=== PATIENT | female | born 1970 | race African-American/Black ===

== ENCOUNTER 2017-06-22 17:46 | Emergency (ER) | payer BC ==
[2017-06-22 18:03] VITALS: BP 137/85
[2017-06-22] MEDS ORDERED: Albuterol/Ipratropium NEB.SOL* Albuterol 2.5 MG/Ipratropium 0.5 MG 3 ML INH ONE (18:09)
[2017-06-22] MEDS ORDERED: predniSONE TAB* 20 MG PO ONE (18:14)
--- NOTE | 2017-06-22 18:15 | UC ---
Asthma HPI - HPI Summary HPI Summary: Chest congestion cough and wheeze for 3 days - History of Current Complaint Chief Complaint: UCRespiratory Stated Complaint: ASTHMA Time Seen by Provider: 06/22/17 18:09 Hx Obtained From: Patient Hx Last Menstrual Period: one month ?: No Onset/Duration: Sudden Onset, Lasting Days - 3, Still Present Timing: Constant Initial Severity: Mild Current Severity: Moderate Location/Character: Cough (Productive) Alleviating Factor(s): Nothing Associated Signs and Symptoms: Positive: Negative - Allergy/Home Medications Allergies/Adverse Reactions: Allergies Allergy/AdvReac Type Severity Reaction Status Date / Time Sulfa Antibiotics Allergy Intermediate Rash Verified 06/22/17 18:03 PMH/Surg Hx/FS Hx/Imm Hx Previously Healthy: No Respiratory History: Asthma GI/ History: Gastroesophageal Reflux - Surgical History Surgical History: None Surgery Procedure, Year, and Place: hx aspiration, pt states she has hx of complex cysts - Family History Known Family History: Positive: None - Social History Occupation: Employed Full-time Lives: With Family Alcohol Use: None Substance Use Type: None Smoking Status (MU): Never Smoked Tobacco Review of Systems Constitutional: Negative Skin: Negative Eyes: Negative ENT: Negative Respiratory: Shortness Of Breath, Cough Cardiovascular: Negative Gastrointestinal: Negative Genitourinary: Negative Motor: Negative Neurovascular: Negative Musculoskeletal: Negative Neurological: Negative Psychological: Negative Is Patient Immunocompromised?: No All Other Systems Reviewed And Are Negative: Yes Physical Exam Triage Information Reviewed: Yes Appearance: Well-Appearing, No Pain Distress, Well-Nourished Vital Signs: Initial Vital Signs Temp 97.7 F 06/22/17 17:59 Pulse 88 06/22/17 17:59 Resp 12 06/22/17 17:59 BP 137/85 06/22/17 17:59 Pulse Ox 100 06/22/17 17:59 Vital Signs Reviewed: Yes Eye Exam: Normal Eyes: Positive: Conjunctiva Clear ENT Exam: Normal ENT: Positive: Normal ENT inspection, Hearing grossly normal, Pharynx normal, Uvula midline. Negative: Nasal congestion, Nasal drainage, Tonsillar swelling, Trismus, Hoarse voice, Dental tenderness Dental Exam: Normal Neck exam: Normal Neck: Positive: Supple, Nontender, No Lymphadenopathy Respiratory Exam: Normal Respiratory: Positive: Chest non-tender, No respiratory distress, No accessory muscle use, Decreased breath sounds, Wheezing Cardiovascular Exam: Normal Cardiovascular: Positive: RRR, No Murmur, Pulses Normal, Brisk Capillary Refill Musculoskeletal Exam: Normal Musculoskeletal: Positive: Strength Intact, ROM Intact, No Edema Neurological Exam: Normal Neurological: Positive: Alert, Muscle Tone Normal Psychological Exam: Normal Skin Exam: Normal Re-Evaluation - Re-Evaluation First Eval Change: Improved - increased aeration, decrease wheeze feeling better after neb Asthma Course/Dx - Course Course Of Treatment: increase fluids, prednisone, neb, mdi, zithromax, follow with pcp prn - Differential Dx/Diagnosis Provider Diagnoses: Bronchitis with acute bronchospasm Discharge - Discharge Plan Condition: Stable Disposition: HOME Prescriptions: Albuterol 2.5MG/3ML (0.083%)* [Ventolin 2.5 MG/3 ML NEB.NORM*] 2.5 mg INH Q4H #1 box Azithromycin TAB* [Zithromax TAB (Z-JIM) 250 mg #6 tabs] 2 tab PO .TODAY, THEN 1 DAILY #1 jim predniSONE TAB* [Deltasone TAB*] 20 mg PO DAILY #9 tab Patient Education Materials: Asthma (ED), Bronchospasm (ED) Referrals: Swati Goodwin NP [Primary Care Provider] - 5 Days
== END 2017-06-22 19:00 | disposition home or self-care (01) ==
LOC: UCEAST 17:46
DX: J20.9 Acute bronchitis, unspecified (principal); J45.909 Unspecified asthma, uncomplicated; K21.9 Gastro-esophageal reflux disease without esophagitis; Z88.2 Allergy status to sulfonamides
CPT/HCPCS: 99212; A9270-GY; G0463; J7512

== ENCOUNTER 2020-12-12 01:41 | Inpatient (IN) ==
[2020-12-12] MEDS ORDERED: Heparin - STEMI 5,000 UNITS/ML 1 ml VIAL IV ONE ×2 (01:45→01:49)
[2020-12-12] MEDS ORDERED: nitroGLYCERIN DRIP 25,000 MCG in Premix IV 0 ML IV ONE (01:49)
[2020-12-12] MEDS ORDERED: nitroGLYCERIN DRIP 25,000 MCG/250 ML BTL ONE ×2 (01:54→02:02)
[2020-12-12] MEDS ORDERED: Ondansetron 4 mg VIAL 2 MG/ML 2 ml VIAL ONE ×2 (02:01→04:21)
[2020-12-12] MEDS ORDERED: Heparin 1,000 UNIT/ML 10 ml (10,000 UNITS) CATHLAB/DIALYSIS ONE (02:01)
[2020-12-12] MEDS ORDERED: VERAPAMIL 2.5 MG/ML 2 ML VIAL ** 5 mg/2 ml ONE (02:01)
[2020-12-12] MEDS ORDERED: Iohexol 350 (CONTRAST) 200 ML MDV IV ONE (02:02)
[2020-12-12] MEDS ORDERED: Lidocaine 1% VIAL 10 MG/ML VIAL ONE (02:02)
[2020-12-12] MEDS ORDERED: Heparin 2 UNITS/ML 1000 mls 3,000 ML IV ONE (02:02)
[2020-12-12 02:05] LABS: ABS Basophils 0.1 10^3/ul (0-0.2); ABS Eosinophils 0.2 10^3/ul (0-0.6); ABS Lymphocytes 2.3 10^3/ul (1.0-4.8); ABS Monocytes 0.6 10^3/ul (0-0.8); ABS Neutrophils 8.7 10^3/ul (1.5-7.7); Eosinophil % 1.5 %; Hematocrit 42 % (35-47); Hemoglobin 14.3 g/dL (12.0-16.0); Mean Corpuscular HGB Conc 34 g/dL (31-36); Mean Corpuscular Hemoglobin 30 pg (27-31); Mean Corpuscular Volume 86 fL (80-97); Mean Platelet Volume 8.2 fL (7.4-10.4); Platelet Count 268 10^3/uL (150-450); Red Blood Count 4.83 10^6 /uL (3.70-4.87); Red Cell Distribution Width 13 % (10-15); White Blood Count 11.8 10^3/uL (3.5-10.8)
[2020-12-12] MEDS ORDERED: Ondansetron 4 mg VIAL 2 MG/ML 2 ml VIAL IV ONE ×2 (02:09→06:00)
[2020-12-12 02:13] LABS: Activated Partial Thrombo Time 24.7 seconds (26.0-38.0)
[2020-12-12] MEDS ORDERED: Midazolam 5 mg/5 ml VIAL 1 mg/ml 5 ml VIAL (5 mg) ONE (02:21)
[2020-12-12] MEDS ORDERED: fentaNYL 100 mcg/2 ml 50 MCG/ML VIAL ONE (02:21)
[2020-12-12 02:23] LABS: Albumin 4.2 g/dL (3.2-5.2); Albumin/Globulin Ratio 1.5 (1-3); Calcium 9.4 mg/dL (8.6-10.3); EGFR African American 95.3 (>60); EGFR Non-African American 78.7 (>60); Globulin 2.8 g/dL (2-4); Potassium 3.8 mmol/L (3.5-5.0); Total Bilirubin 0.4 mg/dL (0.2-1.0)
[2020-12-12 02:26] LABS: Troponin I 0.01 ng/mL (<0.03)
[2020-12-12 02:28] LABS: CKMB ng/mL 1.4 ng/mL (0.6-6.3)
[2020-12-12] MEDS ORDERED: Bivalirudin 250 MG VIAL ONE (02:32)
[2020-12-12] MEDS ORDERED: Adenosine 3 MG/ML 2 ml VIAL (6 mg) ONE (03:04)
[2020-12-12 03:15] LABS: Magnesium 1.9 mg/dL (1.9-2.7)
[2020-12-12] MEDS ORDERED: NS 0.9% 1000 ml BAG 1,000 ML IV SCH (03:30)
[2020-12-12] MEDS ORDERED: Dextrose 50% Syringe 50 ml 25 GM/50 ML SYRINGE IV PUSH PRN (04:07)
[2020-12-12 05:04] LABS: Troponin I 3.34 ng/mL (<0.03)
[2020-12-12] MEDS ORDERED: Potassium Chloride LIQUID 20 MEQ/15 ML LIQUID PO ONE (09:15)
[2020-12-12] MEDS ORDERED: Perflutren Lipid Microsphere 3 ML VIAL ONE (10:22)
[2020-12-12 14:51] LABS: Troponin I 30.29 ng/mL (<0.03)
[2020-12-12] MEDS: Ondansetron 4 mg VIAL 2 MG/ML 2 ml VIAL IV PRN (22:32)
[2020-12-13 06:02] LABS: ABS Eosinophils 0.1 10^3/ul (0-0.6); ABS Lymphocytes 1.8 10^3/ul (1.0-4.8); ABS Monocytes 0.7 10^3/ul (0-0.8); ABS Neutrophils 4.9 10^3/ul (1.5-7.7); Eosinophil % 0.9 %; Hematocrit 38 % (35-47); Lymphocyte % 23.6 %; Mean Corpuscular HGB Conc 34 g/dL (31-36); Mean Corpuscular Hemoglobin 30 pg (27-31); Mean Corpuscular Volume 89 fL (80-97); Mean Platelet Volume 8.2 fL (7.4-10.4); Nucleated Red Blood Cells % 0.2; Platelet Count 221 10^3/uL (150-450); Red Blood Count 4.31 10^6 /uL (3.70-4.87); Red Cell Distribution Width 13 % (10-15); White Blood Count 7.5 10^3/uL (3.5-10.8)
[2020-12-13 06:04] LABS: Albumin 3.6 g/dL (3.2-5.2); Anion Gap 7 mmol/L (2-11); CO2 Carbon Dioxide 21 mmol/L (22-32); Calcium 8.3 mg/dL (8.6-10.3); Chloride 111 mmol/L (101-111); Potassium 3.9 mmol/L (3.5-5.0); Sodium 139 mmol/L (135-145)
[2020-12-13 06:10] LABS: ALT 115 U/L (7-52); AST 117 U/L (13-39); Albumin/Globulin Ratio 1.6 (1-3); Alkaline Phosphatase 78 U/L (35-149); Blood Urea Nitrogen 8 mg/dL (6-24); Cholesterol 177 mg/dL; EGFR African American 102.9 (>60); EGFR Non-African American 85.1 (>60); Globulin 2.2 g/dL (2-4); Glucose 99 mg/dL (70-100); HDL Cholesterol 51.8 mg/dL; LDL Cholesterol 108 mg/dL; Total Protein 5.8 g/dL (6.4-8.9); Triglycerides 87 mg/dL
[2020-12-13] MEDS ORDERED: Potassium Chlor 20 meq TAB.ER PO ONE (07:09)
[2020-12-13] MEDS ORDERED: Potassium Chloride LIQUID 20 MEQ/15 ML LIQUID PO ONE (08:45)
[2020-12-13] MEDS ORDERED: Albuterol HFA INHALER 8 gm MDI INH PRN (10:17)
[2020-12-13 10:50] LABS: Magnesium 1.9 mg/dL (1.9-2.7); Troponin I 11.89 ng/mL (<0.03)
[2020-12-13] MEDS: Ondansetron 4 mg VIAL 2 MG/ML 2 ml VIAL IV PRN (21:09)
[2020-12-14 06:26] LABS: ABS Basophils 0.1 10^3/ul (0-0.2); ABS Eosinophils 0.1 10^3/ul (0-0.6); ABS Lymphocytes 1.7 10^3/ul (1.0-4.8); ABS Monocytes 0.6 10^3/ul (0-0.8); ABS Neutrophils 4.8 10^3/ul (1.5-7.7); Eosinophil % 1.9 %; Hematocrit 40 % (35-47); Hemoglobin 13.9 g/dL (12.0-16.0); Lymphocyte % 23.2 %; Mean Corpuscular HGB Conc 35 g/dL (31-36); Mean Corpuscular Hemoglobin 30 pg (27-31); Mean Corpuscular Volume 86 fL (80-97); Mean Platelet Volume 8.2 fL (7.4-10.4); Nucleated Red Blood Cells % 0.1; Platelet Count 239 10^3/uL (150-450); Red Blood Count 4.63 10^6 /uL (3.70-4.87); Red Cell Distribution Width 13 % (10-15); White Blood Count 7.3 10^3/uL (3.5-10.8)
[2020-12-14 06:41] LABS: Calcium 8.8 mg/dL (8.6-10.3); EGFR African American 91.1 (>60); EGFR Non-African American 75.3 (>60); Magnesium 1.8 mg/dL (1.9-2.7); Potassium 3.7 mmol/L (3.5-5.0)
[2020-12-14 07:49] VITALS: BP 107/69
== END 2020-12-14 10:06 | disposition home or self-care (01) | DRG 174 ==
LOC: ED 01:41 → CHICATH 02:20 → ICU 02:38 → MEDTELE 12-13 12:22
PROVIDERS: ATTEND Internal Medicine Cardiovascular Disease

== ENCOUNTER 2022-03-27 19:07 | Observation (INO) ==
[2022-03-27 19:29] LABS: ABS Basophils 0.1 10^3/ul (0-0.2); ABS Eosinophils 0.2 10^3/ul (0-0.6); ABS Monocytes 0.7 10^3/ul (0-0.8); ABS Neutrophils 4.1 10^3/ul (1.5-7.7); Eosinophil % 3.4 %; Hematocrit 40 % (35-47); Hemoglobin 13.6 g/dL (12.0-16.0); Lymphocyte % 27.8 %; Mean Corpuscular HGB Conc 34 g/dL (31-36); Mean Corpuscular Hemoglobin 30 pg (27-31); Mean Corpuscular Volume 87 fL (80-97); Mean Platelet Volume 8.3 fL (7.4-10.4); Platelet Count 257 10^3/uL (150-450); Red Blood Count 4.59 10^6 /uL (3.70-4.87); Red Cell Distribution Width 14 % (10-15); White Blood Count 7.1 10^3/uL (3.5-10.8)
[2022-03-27 19:35] LABS: INR 1.06 (0.89-1.11)
[2022-03-27 20:06] LABS: Albumin 4.1 g/dL (3.2-5.2); Albumin/Globulin Ratio 1.6 (1-3); Calcium 9.1 mg/dL (8.6-10.3); Globulin 2.5 g/dL (2-4); Potassium 3.5 mmol/L (3.5-5.0); Total Bilirubin 0.5 mg/dL (0.2-1.0); Total Protein 6.6 g/dL (6.4-8.9); eGFR CKD-EPI 103.4 (>60)
[2022-03-27 20:51] LABS: High Sensitivity Troponin 1 Hr 9 pg/mL (<15)
[2022-03-28] MEDS ORDERED: Potassium Chlor 20 meq TAB.ER PO ONE (00:01)
[2022-03-28] MEDS ORDERED: Albuterol HFA INHALER 8 gm MDI INH PRN (02:40)
[2022-03-28 07:25] LABS: Calcium 9.6 mg/dL (8.6-10.3); Potassium 4.5 mmol/L (3.5-5.0); eGFR CKD-EPI 103.4 (>60)
[2022-03-28] MEDS ORDERED: CMC:Ticagrelor 60 mg TAB (NF) PO SCH (09:00)
[2022-03-28] MEDS ORDERED: CMC:Pravastatin 20 mg TAB (NF) PO SCH (09:00)
[2022-03-28 12:49] VITALS: BP 124/89
[2022-03-28] MEDS ORDERED: PROGESTERONE 100 MG PO SCH (21:00)
== END 2022-03-28 13:01 | disposition home or self-care (01) ==
LOC: EDHOLD 19:07 → ED 19:07 → SUATTDRO 03-28 02:03 → EDHOLD 03-28 12:47
PROVIDERS: ADMIT Hospitalist; ATTEND Internal Medicine